=== PATIENT | male | born 1965 | race Two or more races ===

== ENCOUNTER 2021-02-23 09:15 | Emergency (ER) | payer OTHER ==
[~2021-02-23] VITALS: Ht 175.3 cm; Wt 90.0 kg
[2021-02-23 09:17] VITALS: BP 119/71
--- NOTE | 2021-02-23 10:21 | RAD ---
XR EXAM OF ANKLE_RIGHT 3VIEWS, XR RT TIBIA+FIBULA dated 02/23/2021 10:04 AM. History: Reason: fall, proximal fibular pain, mid tibial pain. / Spl. Instructions: / History: Comparison: None. Findings: There is no fracture or dislocation. The bone density is normal. No abnormal periosteal reaction is s een. Joint spaces are maintained. Impression: 1. No acute bony abnormality evident. Electronically signed by: Kojo Merino Jr., MD (02/23/2021 10:19 AM) [id number]
[2021-02-23] MEDS ORDERED: HYDR-2761 PO (10:57)
--- NOTE | 2021-02-23 10:58 | PHYS DOC ---
Past Medical History Past Surgical History: No Surgical History General Adult EDM: Chief Complaint: LOWEREXTREMITY INJURY HPI: HPI: Patient is a 56 year old male who presents with right leg pain. On he was working on a stepladder and fell a couple of feet onto his right leg. Immediate pain over the outside of his knee into his lower leg. Was seen at [facility] and was diagnosed with a fibular head fracture. Was placed in a knee immobilizer, crutches and given orthopedic follow-up. He attempted to schedule appointment with his orthopedist, but had difficulty getting into their office. He has been taking Tylenol and ibuprofen for pain, but this is not managing it. No numbness or tingling. No weakness. Review of Systems: Review of Systems: Constitutional: Denies fever or chills. [] Eyes: Denies change in visual acuity. [] HENT: Denies nasal congestion or sore throat. [] Respiratory: Denies cough or shortness of breath. [] Cardiovascular: Denies chest pain or edema. [] GI: Denies abdominal pain, nausea, vomiting, bloody stools or diarrhea. [] : Denies dysuria. [] Musculoskeletal: Right leg pain. No back pain.. [] Integument: Denies rash. [] Neurologic: Denies headache, focal weakness or sensory changes. [] Endocrine: Denies polyuria or polydipsia. [] Lymphatic: Denies swollen glands. [] Psychiatric: Denies depression or anxiety. [] Heart Score: C/O Chest Pain: N/A Risk Factors: Risk Factors: DM, Current or recent (<one month) smoker, HTN, HLP, family history of CAD, obesity. Risk Scores: Score 0 - 3: 2.5% MACE over next 6 weeks - Discharge Home Score 4 - 6: 20.3% MACE over next 6 weeks - Admit for Clinical Observation Score 7 - 10: 72.7% MACE over next 6 weeks - Early Invasive Strategies Allergies: Allergies: Allergies Coded Allergies Type Severity Reaction Last Updated Verified No Known Drug Allergies 02/23/21 No Physical Exam: PE: Constitutional: Well developed, well nourished, no acute distress, non-toxic appearance. [] HENT: Normocephalic, atraumatic, bilateral external ears normal, oropharynx moist, no oral exudates, nose normal. [] Eyes: PERRLA, EOMI, conjunctiva normal, no discharge. [] Neck: Normal range of motion, no tenderness, supple, no stridor. [] Cardiovascular:Heart rate regular rhythm, no murmur [] Lungs & Thorax: Bilateral breath sounds clear to auscultation [] Abdomen: Bowel sounds normal, soft, no tenderness, no masses, no pulsatile masses. [] Skin: Warm, dry, no erythema, no rash. [] Back: No tenderness, no CVA tenderness. [] Extremities: Tenderness over the proximal fibula to mid fibula. Mild tenderness over the mid tibia. No malleoli or tenderness. No midfoot tenderness. DP pulse 2+. Ankle flexion, extension intact. Knee is stable. [] Neurologic: Alert and oriented X 3, normal motor function, normal sensory function, no focal deficits noted. [] Psychologic: Affect normal, judgement normal, mood normal. [] Current Patient Data: Vital Signs: Vital Signs Date Time Temp Pulse Resp B/P (MAP) Pulse Ox O2 Delivery O2 Flow Rate FiO2 02/23/21 09:17 98.3 71 16 119/71 (87) 97 Room Air 98.3 EKG: EKG: [] Radiology/Procedures: Radiology/Procedures: [] Impression: [facility] [address] [place] [address] IMAGING REPORT Signed PATIENT: KALA YOOACCOUNT: [id number] : 1965 LOCATION: ER AGE: 56 SEX: M EXAM STATUS: REG ER ORD. PHYSICIAN: ARETHA DUNLAP MD REASON: fall, proximal fibular pain, mid tibial pain. PROCEDURE: TIBIA FIBULA RIGHT XR EXAM OF ANKLE_RIGHT 3VIEWS, XR RT TIBIA+FIBULA dated 02/23/2021 10:04 AM. History: Reason: fall, proximal fibular pain, mid tibial pain. / Spl. Instructions: / History: Comparison: None. Findings: There is no fracture or dislocation. The bone density is normal. No abnormal periosteal reaction is seen. Joint spaces are maintained. Impression: 1. No acute bony abnormality evident. Electronically signed by: Harley Merino Jr., MD (02/23/2021 10:19 AM) [id number] DICTATED and SIGNED BY: HARLEY MERINO Jr, MD DATE: 02/23/21 [id number] Course & Med Decision Making: Course & Med Decision Making Pertinent Labs and Imaging studies reviewed. (See chart for details) Patient presents with right lower extremity pain after falling on . Was diagnosed with a proximal fibular head fracture at an outside facility. He presents after he was unable to establish with an orthopedist. Repeat x-rays did not show a fracture per radiology read, however I question whether there is a periosteal reaction on the proximal fibula. I will treat this as an occult fibular fracture. No evidence of compartment syndrome on exam. I have asked him to continue his knee immobilizer. We will provide him with orthopedic follow-up through our hospital. Continue Tylenol and ibuprofen for supportive care. We will prescribe a short course of hydrocodone for breakthrough pain. Dragon Disclaimer: Dragon Disclaimer: This electronic medical record was generated, in whole or in part, using a voice recognition dictation system. Departure Departure Impression: Primary Impression: Fracture of head of fibula Referrals: NO PCP (PCP) SOURAV MURGUIA Jr. DO Schedule follow-up appointment this week with the orthopedic office of Dr. Murguia Additional Instructions: For pain tylenol and ibuprofen are best used on a schedule. Please alternate between the two. -Tylenol 500 mg every 6 hours (do not exceed 4000 mg in one day) -Ibuprofen 400 mg every 6 hours. Take with food. Do not take for more than 1 week. You can take hydrocodone 1 tab every 4 hours as needed for breakthrough pain that is not treated by the above regimen. Please follow-up with our orthopedist. Please use the knee immobilizer until you can follow-up with the orthopedist. You can use crutches as well. You can bear a small amount of weight on the leg as tolerated. Scripts Hydrocodone Bit/Acetaminophen (HYDROCODONE-APAP 5-325 ) 1 Tab Tablet 1 TAB PO PRN Q4-6HRS PRN for PAIN for 3 Days, #12 TAB 0 Refills Prov: ARETHA DUNLAP MD 02/23/21 ARETHA DUNLAP MD Feb 23, 2021 10:58
== END 2021-02-23 11:30 | disposition home or self-care (01) ==
LOC: ER 09:15
DX: S82.491A Other fracture of shaft of right fibula, initial encounter for closed fracture (principal); W11.XXXA Fall on and from ladder, initial encounter; Y93.89 Activity, other specified; Y92.69 Other specified industrial and construction area as the place of occurrence of the external cause; Y99.0 Civilian activity done for income or pay
CPT/HCPCS: 29505; 73590; 73610; 99283; 99284